=== PATIENT | male | born 1960 | race Caucasian/White ===

== ENCOUNTER 2017-06-01 22:00 | Emergency (ER) | payer OTHER ==
[~2017-06-01] VITALS: Ht 180.3 cm; Wt 56.7 kg
--- NOTE | ~2017-06-01 | EKG ---
[place] [address] [facility] [place] [address] ELECTROCARDIOGRAM REPORT Name: QUE HATCH [id number] Admission: 06/01/17 Attend Phys: Discharge: 06/02/17 Date of : 60 Report #: [id number] THIS REPORT FOR: //name// [facility] ED Test Date: 2017-06-01 Test Time: 22:05:49 Pat Name: QUE HATCH Department: Room: Gender: M Marketing Strategy Manager: LASHANDA : 1960 Requested By: Jean Pierre Crump Order Number: [id number] MD: Yosef Nazario Measurements Intervals [place] Rate: 71 P: 51 ND: 139 QRS: -48 QRSD: 145 T: 25 QT: 438 QTc: 476 Interpretive Statements Sinus rhythm Probable left atrial enlargement RBBB and LAFB Left ventricular hypertrophy Compared to ECG 04/08/2001 21:05:45 Left anterior fascicular block now present Right bundle-branch block now present Electronically Signed On 06-02-2017 10:12:19 [employer] by Yosef Nazario [email or web address] <ELECTRONICALLY SIGNED> By: Yosef Nazario MD, [facility] 06/02/17 1012 04 Yosef Nazario MD, [facility] /EPI
[2017-06-01 22:36] LABS: HEMATOCRIT 34.2 % (42.0-52.0); HEMOGLOBIN 11.6 gm/dL (14.0-18.0); MCH 30.2 pg (26.0-34.0); PLATELET COUNT 240 thou/uL (150-400); RBC 3.84 mil/uL (4.50-6.00); RDW 13.8 % (10.5-14.5); WBC 5.6 thou/uL (4.0-11.0)
[2017-06-01 22:42] LABS: URINE BILIRUBIN NEGATIVE (Negative); URINE BLOOD NEGATIVE (Negative); URINE CLARITY CLEAR; URINE COLOR YELLOW; URINE GLUCOSE-RANDOM* NEGATIVE (Negative); URINE KETONES NEGATIVE (Negative); URINE LEUKOCYTES NEGATIVE (Negative); URINE LEUKOCYTES-REFLEX NEGATIVE (Negative); URINE NITRITE NEGATIVE (Negative); URINE NITRITE-REFLEX NEGATIVE (Negative); URINE PROTEIN (DIPSTICK) NEGATIVE (Negative); URINE UROBILINOGEN 0.2 E.U./dl (0.2-1.0)
[2017-06-01 22:42] LABS: ANION GAP 7 mmol/L (7-16); BUN 30 mg/dL (7-18); CALCIUM 9.3 mg/dL (8.5-10.1); CHLORIDE 106 mmol/L (98-107); CO2 31 mmol/L (21-32); GLUCOSE 110 mg/dL (74-106); POTASSIUM 4.4 mmol/L (3.5-5.1); SODIUM 144 mmol/L (136-145)
[2017-06-01 22:50] LABS: AMP/METHAMP Negative (Negative); BARBITURATES Negative (Negative); BENZODIAZEPINES POSITIVE (Negative); COCAINE Negative (Negative); METHADONE Negative (Negative); OPIATES Negative (Negative); PCP Negative (Negative)
[2017-06-01 22:51] LABS: ALBUMIN 2.9 g/dL (3.4-5.0); MAGNESIUM 2.1 mg/dL (1.8-2.4); SGOT 18 U/L (15-37); SGPT 24 U/L (30-65); TOTAL BILIRUBIN 0.2 mg/dL (<0.1-1.0); TOTAL PROTEIN 6.9 g/dL (6.4-8.2); TROPONIN-I < 0.04 ng/mL (<0.06)
[2017-06-01 22:57] LABS: ABSOLUTE NEUTROPHILS 2.7 thou/uL (1.4-8.2)
[2017-06-01] MEDS ORDERED: BENZTROPINE MESY2 MG PO (23:08)
[2017-06-01] MEDS ORDERED: DDAVP0.1 MG PO (23:09)
[2017-06-01] MEDS ORDERED: LOVASTAT40 PO (23:10)
[2017-06-01] MEDS ORDERED: MOBIC15 MG PO (23:11)
[2017-06-01] MEDS ORDERED: NUEDEXTA 20-101 EACH PO (23:12)
[2017-06-01] MEDS ORDERED: SEROQUEL 50 MG50 M1 PO (23:13)
[2017-06-01] MEDS ORDERED: VENLAFAXINE HCL75 M1 PO (23:14)
[2017-06-01] MEDS ORDERED: ADVAIR HFA 230M12 GM INH (23:14)
[2017-06-01] MEDS ORDERED: NEURONTIN 300300 M1 PO (23:15)
[2017-06-01] MEDS ORDERED: COLACE100 MG PO (23:15)
[2017-06-01] MEDS ORDERED: DEPAKOTE ER500 MG PO (23:16)
[2017-06-01] MEDS ORDERED: XANAX1 MG PO (23:16)
[2017-06-01] MEDS ORDERED: TYLENOL PM EX-1 EACH PO (23:19)
== END 2017-06-02 01:41 | disposition short-term general hospital (02) ==
LOC: ER 22:00
PROVIDERS: Emergency Medicine
DX: S06.5X9A Traumatic subdural hemorrhage with loss of consciousness of unspecified duration, initial encounter (principal); T50.901A Poisoning by unspecified drugs, medicaments and biological substances, accidental (unintentional), initial encounter; R41.82 Altered mental status, unspecified; X58.XXXA Exposure to other specified factors, initial encounter; Y93.89 Activity, other specified; Y92.89 Other specified places as the place of occurrence of the external cause; Y99.8 Other external cause status